=== PATIENT | female | born 1955 | race Two or more races ===

== ENCOUNTER 2019-10-30 07:50 | Day surgery (SDC) | payer OTHER ==
[~2019-10-30 07:50] MED LIST: NAPR500T14 PO; VASOTEC10 MG PO; VISTARIL25 MG PO
== END 2019-10-30 17:55 | disposition home or self-care (01) ==
LOC: CIR.AMB 07:50
DX: K64.8 Other hemorrhoids (principal); K64.4 Residual hemorrhoidal skin tags